=== PATIENT | female | born 2000 | race African-American/Black ===

== ENCOUNTER 2018-05-03 18:43 | Emergency (ER) | payer MEDICAID ==
[2018-05-03] MEDS: NS 1,000 ML IV ×2 (22:00)
[2018-05-03] MEDS: KETOROLAC 30 MG/ML VIAL (J1885) IV ×2 (22:00)
[2018-05-03 22:07] LABS: BASO % 0.3 % (0.0-1.0); EOS # 0.1 10^3/uL (0.0-0.50); EOS % 1.4 % (0.0-3.0); HEMATOCRIT 36.8 % (36.0-47.0); HEMOGLOBIN 12.4 g/dl (12.0-15.5); IMMATURE GRANULOCYTE % 0.2 % (0-3.0); LYMPH # 3.2 10^3/uL (1.5-6.5); LYMPH % 53.4 % (24.0-44.0); MEAN CORPUSCULAR HEMOGLOBIN 29.6 pg (27.0-33.0); MEAN CORPUSCULAR HGB CONC 33.7 g/dl (32.0-36.5); MEAN CORPUSCULAR VOLUME 87.8 fl (80.0-96.0); MONO # 0.7 10^3/uL (0.0-0.8); MONO % 11.5 % (0.0-5.0); NEUTROPHILS % 33.2 % (36.0-66.0); PLATELET COUNT, AUTOMATED 324 10^3/uL (150-450); RED BLOOD COUNT 4.19 10^6/uL (4.00-5.40); RED CELL DISTRIBUTION WIDTH 12.1 % (11.5-14.5); WHITE BLOOD COUNT 5.9 10^3/uL (4.0-10.0)
[2018-05-03 22:11] LABS: ANION GAP 7 MEQ/L (8-16); BLOOD UREA NITROGEN 9 MG/DL (7-18); CALCIUM LEVEL 9.2 MG/DL (8.5-10.1); CARBON DIOXIDE LEVEL 29 MEQ/L (21-32); CHLORIDE LEVEL 106 MEQ/L (98-107); CREATININE FOR GFR 0.64 MG/DL (0.55-1.30); GLUCOSE, FASTING 75 MG/DL (70-100); POTASSIUM SERUM 4.1 MEQ/L (3.5-5.1); SODIUM LEVEL 142 MEQ/L (136-145)
[2018-05-03] MEDS: ACETAMINOPHEN 325 MG TAB PO ×2 (23:16)
== END 2018-05-03 23:37 | disposition home or self-care (01) ==
LOC: M ED 18:43
DX: G43.109 Migraine with aura, not intractable, without status migrainosus (principal); H57.8 Other specified disorders of eye and adnexa
CPT/HCPCS: J1885

== ENCOUNTER → 2018-08-01 | Outpatient (CLI) | payer MEDICAID, OTHER ==
[~2018-08-01] MED LIST: ISOVUE-370 76% 100ML VIAL (Q9967) As Ordered
== END ==
LOC: M RADPRO 11:56
DX: N97.9 Female infertility, unspecified (principal)
CPT/HCPCS: 58340

== ENCOUNTER 2018-10-26 19:30 | Emergency (ER) | payer MEDICAID, SELFPAY ==
[~2018-10-26] VITALS: Ht 162.6 cm; Wt 68.2 kg
[~2018-10-26 19:30] MED LIST changes: +IBUP80TA PO; -ISOVUE-370 76% 100ML VIAL (Q9967) As Ordered; +ZOFR4TAB14 PO
[2018-10-26] MEDS ORDERED: KETOROLAC 60 MG/2 ML VIAL (J1885) IM ONE (20:45)
[2018-10-26] MEDS ORDERED: ACETAMINOPHEN TAB 650MG DOSE (2X325MG) PO ONE (20:45)
[2018-10-26] MEDS ORDERED: IBUP-1022 PO (21:41)
[2018-10-26 21:45] VITALS: BP 116/55
== END 2018-10-26 21:55 | disposition home or self-care (01) ==
LOC: M ED 19:30
DX: R51 Headache (principal)
CPT/HCPCS: 81025; 96372; 99284; J1885

== ENCOUNTER 2019-05-04 20:24 | Emergency (ER) | payer OTHER, SELFPAY ==
[~2019-05-04 20:24] MED LIST changes: +IBUP-1022 PO
[2019-05-04] MEDS ORDERED: ACETAMINOPHEN 325 MG TAB PO ONE (21:45)
--- NOTE | 2019-05-04 23:25 | REPVR ---
EXAM: US First Trimester, Transabdominal and US Duplex Artery and Vein, Ovaries, Complete EXAM DATE/TIME: 05/04/2019 10:16 PM CLINICAL HISTORY: 18 years old, female; complicated by abdominal or pelvic pain; Generalized abdominal pain; First trimester; Gestational age or lmp: 13w; ; Additional info: Abdominal pain; 13 weeks TECHNIQUE: Imaging protocol: Real-time transabdominal obstetrical ultrasound of the maternal pelvis and a first trimester , less than 14 weeks 0 days, with image documentation. Real-time duplex ultrasound scan of the arterial and venous flow of the ovaries with B-mode, color Doppler flow and spectral waveform analysis, complete duplex. COMPARISON: No relevant prior studies available. FINDINGS: GESTATION: Gestation: There is a single live intrauterine gestation. Heart rate: 152 beats per minute Presentation: Variable Placenta: The location of placenta is posterior without evidence for placenta previa or placental abruption and is grade 0. Amniotic fluid: Subjectively within normal limits. BIOMETRY: Estimated gestational age by US: 13 weeks 0 days Estimated gestational age by LMP: 26 weeks 1 day Kimm[place]-Rump length: 6.59 cm; 12 weeks 6 days (48th percentile for gestational age of 13 weeks 0 days) Estimated due date by US: 11/09/2019 Estimated due date by LMP: 08/09/2019 Estimated weight: 68 g +/- 10 g (2 oz +/- 0 oz); (39th percentile for gestational age of 13 weeks 0 days, <3rd percentile for gestational age of 26 weeks 1 day based on LMP) Biparietal diameter: 1.97 cm; 15 weeks 1 day (56th percentile for gestational age of 13 weeks 0 days) Head circumference: 7.1 cm; 12 weeks 6 days (48th percentile for gestational age of 13 weeks 0 days) Abdominal circumference: 6.02 cm; 12 weeks 6 days (46th percentile for gestational age of 13 weeks 0 days) Femur length: 1.09 cm; 13 weeks 2 days (59th percentile for gestational age of 13 weeks 0 days) MATERNAL: Uterus: Unremarkable. Cervix: The cervix measures 3.3 cm in length and is closed. Right adnexa: The right ovary is normal in appearance. No right ovarian cyst or right adnexal mass is noted. The right ovary measures 3.3 cm x 2.8 cm x 3.7 cm. The arterial and venous color Doppler flow and spectral waveforms within the right ovary are within normal limits, without evidence for right ovarian torsion. Left adnexa: The left ovary measures 5.1 cm x 2.8 cm x 1.9 cm and contains a 2.3 cm x 2 cm x 1.9 cm hypoechoic cyst, which likely represents a corpus luteal cyst. The arterial and venous color Doppler flow and spectral waveforms within the left ovary are within normal limits, without evidence for left ovarian torsion. Intraperitoneal: No intraperitoneal free fluid is visualized in the images obtained. IMPRESSION: 1. Single live intrauterine gestation with a gestational age by ultrasound of 13 weeks 0 days and estimated due date on 11/09/2019 and appropriate growth for gestational age. A second trimester obstetrical ultrasound is recommended at 18-20 weeks gestation or as clinically indicated 2. Estimated weight = 68 g +/- 10 g (2 oz +/- 0 oz), which is in the 39th percentile for the gestational age of 13 weeks 0 days. 3. 2.3 cm x 2 cm x 1.9 cm hypoechoic left ovarian cyst, which likely represents a corpus luteal cyst. 4. No ovarian torsion. Electronically signed by: Curt Marte On 05/04/2019 23:24:59 PM
[2019-05-04 23:31] VITALS: BP 133/64
[2019-05-04] MEDS ORDERED: KEFL500C17 PO (23:52)
--- NOTE | 2019-05-06 07:02 | ECGEPIP ---
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
== END 2019-05-05 00:01 | disposition home or self-care (01) ==
LOC: M ED 20:24
DX: O23.41 Unspecified infection of urinary tract in pregnancy, first trimester (principal); Z3A.13 13 weeks gestation of pregnancy; Z79.899 Other long term (current) drug therapy

== ENCOUNTER → 2019-05-15 | Outpatient (REF) | payer MEDICAID ==
[~2019-05-15] MED LIST changes: +KEFL500C17 PO
[2019-05-15 20:17] LABS: HEMATOCRIT 35.3 % (36.0-47.0); MEAN CORPUSCULAR HEMOGLOBIN 29.9 pg (27.0-33.0); PLATELET COUNT, AUTOMATED 290 10^3/uL (150-450); RED BLOOD COUNT 4.01 10^6/uL (4.00-5.40); WHITE BLOOD COUNT 6.9 10^3/uL (4.0-10.0)
[2019-05-16 10:19] LABS: HEPATITIS C VIRUS ABY INDEX 0.1 INDEX (<0.8); HIV 1&2 SCREEN CENTAUR NEGATIVE (NEGATIVE); RUBELLA IgG QUALITATIVE IMMUNE (IMMUNE)
[2019-05-21 00:06] LABS: HEMOGLOBIN A 95.7 % (96.4-98.8); HEMOGLOBIN A2 2.6 % (1.8-3.2); HEMOGLOBIN F (FETAL) 1.7 % (0.0-2.0); HGB SOLUBILITY Negative (Negative)
== END ==
LOC: M LAB REF 16:41
PROVIDERS: ATTEND Nurse Practitioner Women's Health
DX: Z34.82 Encounter for supervision of other normal pregnancy, second trimester (principal); Z3A.00 Weeks of gestation of pregnancy not specified

== ENCOUNTER → 2019-08-11 | Outpatient (CLI) | payer MEDICAID ==
[2019-08-11 16:02] LABS: HEMATOCRIT 34.2 % (36.0-47.0); HEMOGLOBIN 11.1 g/dl (12.0-15.5); MEAN CORPUSCULAR HEMOGLOBIN 29.2 pg (27.0-33.0); MEAN CORPUSCULAR HGB CONC 32.5 g/dl (32.0-36.5); PLATELET COUNT, AUTOMATED 259 10^3/uL (150-450); WHITE BLOOD COUNT 7.8 10^3/uL (4.0-10.0)
== END ==
LOC: M LAB 14:29
PROVIDERS: ATTEND Nurse Practitioner Women's Health
DX: Z34.82 Encounter for supervision of other normal pregnancy, second trimester (principal); Z3A.00 Weeks of gestation of pregnancy not specified

== ENCOUNTER 2019-09-06 16:37 | Outpatient (CLI) | payer MEDICAID ==
[~2019-09-06] VITALS: Ht 162.6 cm; Wt 76.4 kg
[2019-09-06 16:53] VITALS: BP 132/80
--- NOTE | 2019-09-06 17:22 | IPN ---
DATE: 09/06/2019 A 18-year-old G1 at 31 weeks gestation presents with lower abdominal cramping for 1 week. The cramping is worse when she is at work. She has no bleeding. She has no severe pains. She is a patient of Noelle Cruz but was told to come to [facility] because it was the closest hospital. She did not call her provider. Her mother told her to come to the hospital. OBJECTIVE: Weight 76 kg, height 5 feet 4 inches, blood pressure 130/78. She is in no apparent distress. Head and neck exam normal. Lungs clear. Heart regular. Abdomen nontender, gravid, soft. Sterile vaginal exam: Long, closed, posterior cervix. heart tone category 1. Contractions: None. Extremities: Nontender. ASSESSMENT: A 18-year-old G1 at 31 weeks gestation presents with lower abdominal cramping. No evidence of labor. PLAN: Try abdominal binder to help support her abdomen while at work. Tylenol and rest when possible. Stay well hydrated. Followup with Noelle Cruz as scheduled.
== END 2019-09-06 17:30 | disposition home or self-care (01) ==
LOC: M LDO 16:37
PROVIDERS: ATTEND Specialist
DX: O26.893 Other specified pregnancy related conditions, third trimester (principal); R10.30 Lower abdominal pain, unspecified; Z3A.31 31 weeks gestation of pregnancy

== ENCOUNTER → 2019-10-07 | Outpatient (REF) | payer OTHER | LOC: M LAB REF 17:10 | PROVIDERS: ATTEND Obstetrics & Gynecology | DX: Z36.85 Encounter for antenatal screening for Streptococcus B (principal) ==

== ENCOUNTER 2019-10-24 00:52 | Outpatient (CLI) | payer BC, OTHER ==
[~2019-10-24] VITALS: Ht 162.6 cm; Wt 84.0 kg
[2019-10-24] VITALS (25 sets, daily range): BP systolic 102–159; BP diastolic 58–87
[2019-10-24] MEDS ORDERED: PRENTAB9 PO (02:04)
[2019-10-24] MEDS ORDERED: LR 1,000 ML IV SCH (02:30)
[2019-10-24] MEDS ORDERED: PENICILLIN G POTASSIUM IV 5 MU in D5W MINI-BAG PLUS 100 ML IV ONE (02:30)
[2019-10-24 03:44] LABS: HEMATOCRIT 36.3 % (36.0-47.0); HEMOGLOBIN 12.3 g/dl (12.0-15.5); MEAN CORPUSCULAR HEMOGLOBIN 29.9 pg (27.0-33.0); MEAN CORPUSCULAR HGB CONC 33.9 g/dl (32.0-36.5); MEAN CORPUSCULAR VOLUME 88.3 fl (80.0-96.0); PLATELET COUNT, AUTOMATED 260 10^3/uL (150-450); RED BLOOD COUNT 4.11 10^6/uL (4.00-5.40); WHITE BLOOD COUNT 8.5 10^3/uL (4.0-10.0)
[2019-10-24] MEDS: PENICILLIN G POTASSIUM IV 2.5 MU in IV 1 EA IV SCH ×3 (07:24→16:57)
[2019-10-24] MEDS ORDERED: LACTATED RINGER'S 1000 ML IV STA (07:32)
--- NOTE | 2019-10-24 08:24 | HPEPDOC ---
Obstetrical History & Physical General Date of Admission Oct 24, 2019 at 02:50 Primary Care Physician: Marcia Cortez CNM History of Present Illness Chief Complaint: LOF, term, Group B Positive, Rupture of membranes Information Provided By: Patient Age: 18 : 2 Term: 0 Pre-term: 0 Abortions: 1 Livin Care Care: Good Care Dating Final EDC: Nov 09, 2019 Final EDC by: 1st trimester (US) LMP: Jul 27, 2018 (unsure of date) EGA at Admission: 37.5 Antepartum Course Diagnos(e)s SIUP at 37.5wk gestation, SROM Height (inches): 64 Pre- weight (lbs.): 145 Admission Weight (lbs.): 185 Change in Weight (lbs.): 40 Past Medical History Past Obstetrical History : Past Obstetrical History: Primgravida MEDICAL DOSIMETRIST History: Theraputic Past Medical History Surgical History: Denies/None Family History Significant Family History: Cancer, Other (Stroke, Alzheimer's disease) Social History Marital Status: Single Family situation: Spouse/partner home Psychosocial History: No pertinent psych hx * Smoker: non-smoker Alcohol: Denies Drugs: denies Abuse Violence Screening Have you been hit/kicked/slapp: No Have you been sexually assault: No Allergies Coded Allergies: No Known Allergies (Unverified , 05/03/18) Medications Scheduled Cephalexin (Keflex) 500 Mg Capsule, 500 MG PO Q12H No.137/Iron/Folic Acd ( Vitamin Tablet) 1 Each Tablet, 1 TAB PO DAILY Scheduled PRN Ibuprofen (Ibuprofen) 800 Mg Tab, 800 MG PO Q8HP PRN for PAIN Ibuprofen (Ibuprofen) 600 Mg Tab, 600 MG PO Q6H PRN for PAIN Ondansetron (Zofran Odt) 4 Mg Tab, 4 MG PO Q4H PRN for NAUSEA Physical Examination Physical Examination GENERAL: Alert and oriented times three. BREAST: . ABDOMEN: Gravid and non-tender to touch. FETUS: Is vertex (VTX) by sterile vaginal examination (SVE), fetus is vertex (VT X) by Duncan. HEART RATE: Regular rate and rhythm. LUNGS: Clear to auscultation (CTA). EXTREMITIES: No edema. No clonus. Deep tendon reflexes (DTRs) + 2. Vital Signs/I&O Vital Signs Date Time Temp Pulse Resp B/P (MAP) Pulse Ox O2 Delivery O2 Flow Rate FiO2 10/24/19 07:27 74 131/74 (93) 10/24/19 03:57 98.0 10/24/19 01:13 18 Laboratory Data 24H LABS Laboratory Tests 2 10/24/19 02:52: Serology Scanned Report Hepatitis B Testing 10/24/19 03:30: Nucleated Red Blood Cells % (auto) 0.0 CBC/BMP Laboratory Tests 10/24/19 03:30 Pertinent Laboratoy Data Blood Type: O+ RBC Antibody Screen: Negative HIV: Negative Hepatitis B: Negative Hepatitis C: Negative Rapid Plasma Reagin: Nonreactive Rubella: Immune Chlamydia/Gonorrhea: Negative Group B Streptococcus: Positive Quad Screen Test: Negative Glucose Tolerance Test: 77 Anatomy Ultrasound Ultrasound Date: Jun 24, 2019 Placenta Location: Posterior Normal Anatomy: Yes Placenta Previa: No Other Ultrasounds 05/04/2019-SIUP at 13.0wk gestation JUVENCIO 11/09/2019. Posterior placenta. Hypoechoic cyst which likely represents corpus luteal cyst. 06/24/2019-SIUP at 20.2wk. [id number], Posterior placenta. No previa. AFV normal. Vaginal Examination Dilation: 1cm Effacement: 80% Station: -2 Cervical Consistency: Soft Cervical Position: Middle Presentation: Cephalic presentation Position: Vertex (occiput) Assessment Heart Rate (FHR): 135 Variability: Moderate Accelerations: Positive Decelerations: None Tocometer Contractions: Yes Frequency: irregular, every 3-7 min. Duration: greater than 60 seconds Strength: palpated as mild Assessment/Plan Assessment Caren Dunn is a 18-year-old (G)2 para (P)0-0-1-0 at 37+5 weeks by 13-week ultrasound. JUVENCIO 11/09/2019. Care was established at [facility] in the first trimester. has been complicated by GBS positive state. Presents to Labor and Delivery (L&D) for evaluation of SROM at 2200 last night. She reports positive movement, denies vaginal bleeding. Reports clear fluid leaking and irregular mildly painful contractions since 2200. Plan Admit to L&D. Diet: Clears. Group B Streptococcus (GBS) positive. Labs and intravenous (IV) per unit protocol. Counseled on Pitocin and induction of labor (IOL). Lactated Ringers (LR): Bolus 500 mL, then at 125 mL/hr. Anesthesia consult per patient request. Anticipate cervical ripening and dilation. Anticipate normal spontaneous delivery (). C-S as appropriate. Marcia Cortez CNM Oct 24, 2019 08:24
[2019-10-24] MEDS: LR 1,000 ML IV SCH ×2 (10:30→17:01)
[2019-10-24] MEDS ORDERED: OXYTOCIN DRIP 30 UNITS in IV 1 EA IV SCH (11:00)
--- NOTE | 2019-10-24 14:44 | IPNPDOC ---
Text Note Date of Service The patient was seen on 10/24/19. NOTE Progress Patient has had absolutely no leakage of fluid since her arrival. ROM only documented by exterior nitrazine via nursing. Cat I tracing. Vertex presentation confirmed by sono Spec exam - neg pool, faint + nitrazine, neg fern. Pitocin off. BPP with DEMI and reassess for LOF after sono VS,Fishbone, I+O VS, Fishbone, I+O Laboratory Tests 10/24/19 03:30 Vital Signs Date Time Temp Pulse Resp B/P (MAP) Pulse Ox O2 Delivery O2 Flow Rate FiO2 10/24/19 11:30 71 18 134/64 (87) 10/24/19 10:29 99.0 Marcia Cortez CNM Oct 24, 2019 14:44
--- NOTE | 2019-10-24 16:27 | REP ---
OB ULTRASOUND AND BIOPHYSICAL PROFILE: Real-time sonographic evaluation of the gravid uterus performed. There is a single living intrauterine gestation. The estimated gestational age is 37 weeks 5 days, EDC 11/09/2019. heart rate 136 beats per minute. Amniotic fluid within normal limits. DEMI is 14.7, within normal range of 7.4 to 24.1. Biophysical profile score 8/8. S/D ratio 3.58 is above normal range of 1.6 to 2.6. RI 0.72, within normal range of 0.59 to 0.75. position is vertex. Placenta is posterior and grade 2 with no previa or abruption. Cervix is not well seen due to low head position. Electronically Signed by Simone Hung MD 10/24/2019 04:32 P
--- NOTE | 2019-10-24 17:30 | IPNPDOC ---
Text Note Date of Service The patient was seen on 10/24/19. NOTE Progress BPP 8/8. DEMI 14.7 No evidence of LOF despite 2 speculum exams, both demonstrate faint nitrazine, neg pool, neg valsalva, neg fern. Scant bloody discharge at cervical os. Cat I tracing, irregular mild UC. Reviewed pt status with Dr Che. Agrees not ruptured. Discharged home. Instructed to avoid tub baths, intercourse, anything vaginally. Wear a pad daily, call if saturated. Call for temperature, decreased movement, regular UC Keep appt next week with Dr Acevedo. VS,Fishbone, I+O VS, Fishbone, I+O Laboratory Tests 10/24/19 03:30 Vital Signs Date Time Temp Pulse Resp B/P (MAP) Pulse Ox O2 Delivery O2 Flow Rate FiO2 10/24/19 16:50 87 18 125/75 (92) 10/24/19 15:42 98.9 Marcia Cortez CNM Oct 24, 2019 17:30
== END 2019-10-24 19:37 | disposition home or self-care (01) ==
LOC: M LDO 00:52 → UNDOADMIN 02:50 → M LDI 02:50 → UNDOADMIN 07:35 → M LDI 07:35 → M LDO 19:37 → UNDODISIN 19:37
PROVIDERS: ATTEND Obstetrics & Gynecology
DX: O26.893 Other specified pregnancy related conditions, third trimester (principal); N89.8 Other specified noninflammatory disorders of vagina; O99.820 Streptococcus B carrier state complicating pregnancy; O62.0 Primary inadequate contractions; Z3A.37 37 weeks gestation of pregnancy
CPT/HCPCS: 59025; 76815; 76819; 76820; 85027; 86592; 86780; 86850; 86900; 86901; 96365; 96366; 96368; G0463; J2590

== ENCOUNTER 2019-10-31 01:52 | Inpatient (IN) | payer BC, OTHER ==
[2019-10-31] VITALS (11 sets, daily range): BP systolic 121–157; BP diastolic 62–89
[~2019-10-31] VITALS: Ht 162.6 cm; Wt 80.9 kg
[~2019-10-31 01:52] MED LIST changes: +PRENTAB9 PO
[2019-10-31] MEDS ORDERED: OXYTOCIN 30 UNITS IN 0.9% NaCl 500ML IV BAG (J2590) As Ordered ONE (04:42)
[2019-10-31] MEDS ORDERED: LR 1,000 ML IV SCH (05:21)
[2019-10-31] MEDS ORDERED: RHOGAM 300 MCG (1500 IU) INJ (J2790) IM SCH (05:30)
[2019-10-31] MEDS ORDERED: ACETAMINOPHEN TAB 650MG DOSE (2X325MG) PO PRN (05:30)
[2019-10-31] MEDS ORDERED: DOCUSATE SODIUM 100 MG CAP PO PRN (05:30)
[2019-10-31] MEDS ORDERED: DIBUCAINE 1% OINTMENT 30GM TOP PRN (05:30)
[2019-10-31] MEDS ORDERED: LIDOCAINE 1% MDV 20ML VIAL INFIL ONE (05:30)
[2019-10-31] MEDS ORDERED: METHYLERGONOVINE MALEATE 0.2 MG TAB PO PRN (05:30)
[2019-10-31] MEDS ORDERED: MEASLES,MUMPS,RUBELLA VACCINE INJ (MMR-II) (90707) SC SCH (05:30)
[2019-10-31 05:54] LABS: HEMATOCRIT 36.4 % (36.0-47.0); HEMOGLOBIN 12.5 g/dl (12.0-15.5); MEAN CORPUSCULAR HGB CONC 34.3 g/dl (32.0-36.5); MEAN CORPUSCULAR VOLUME 87.5 fl (80.0-96.0); PLATELET COUNT, AUTOMATED 239 10^3/uL (150-450); RED BLOOD COUNT 4.16 10^6/uL (4.00-5.40); WHITE BLOOD COUNT 11.2 10^3/uL (4.0-10.0)
[2019-10-31] MEDS ORDERED: OXYTOCIN DRIP 30 UNITS in IV 1 EA IV ONE (07:30)
[2019-10-31] MEDS: ACETAMINOPHEN 500 MG TAB PO PRN ×2 (08:10→17:36)
[2019-10-31] MEDS: PRENATAL VITAMINS CHEWABLE TABLET PO SCH (09:00)
[2019-10-31] MEDS: IBUPROFEN 600 MG TAB PO PRN (12:04)
--- NOTE | 2019-10-31 17:31 | HPE ---
DATE OF ADMISSION: 10/31/2019 Caren is a 18-year-old female, 1, para 0 with an estimated date of confinement (EDC) of 11/09/2019, estimated gestational age (EGA) 38-4/7 weeks gestation who presented to labor and delivery with complaints of contractions. She was being monitored in labor and delivery, became fully dilated precipitously, and at this point, the decision was made to admit the patient. Her records reviewed. LABORATORY DATA: Blood type is O+, rubella immune, hepatitis negative, HIV negative, GC and chlamydia negative, one-hour sugar testing was within normal limit. Her GBS is positive. PAST MEDICAL HISTORY: Denies. PAST SURGICAL HISTORY: Denies. SOCIAL HISTORY: The patient denies any alcohol, drug or cigarette smoking. REVIEW OF SYSTEMS: Unremarkable. MEDICATIONS: vitamin. ALLERGIES: No known drug allergy. PHYSICAL EXAMINATION: HEENT: Grossly within normal limits. ABDOMEN: Soft, nontender, nondistended, gravid. EXTREMITIES: No clubbing, cyanosis or edema. Tracing reviewed. Category 1 tracing with occasional deceleration. Contractions every 3-4 minutes. ASSESSMENT: Intrauterine at 38-4/7 weeks gestation, progressing in labor rapidly. PLAN: Admit to labor and delivery. Laboratories reviewed.
[2019-11-01] MEDS: IBUPROFEN 600 MG TAB PO PRN (00:14)
[2019-11-01 05:54] VITALS: BP 116/55
[2019-11-01] MEDS: IBUPROFEN 800 MG TAB PO PRN (07:18)
--- NOTE | 2019-11-01 07:45 | IPNPDOC ---
Progress Note Date of Service: Nov 01, 2019 Day#: 1 Progress Note SUBJECT: Caren is a 18-year-old status post uncomplicated spontaneous vaginal delivery doing well day # 1. She has been ambulating, voiding spontaneously without issue and tolerating regular diet. Breast feeding well. Reports lochia is like a normal period. Reports pain is well-controlled. OBJECTIVE: VITAL SIGNS: Within normal limits, afebrile. Alert and oriented times three. Breath sounds clear to auscultation. Heart rate: Regular rate and rhythm, no murmurs, rubs or gallops. Abdomen: Fundus firm at U-2. Soft, appropriately tender to palpation. Minimal lochia. ASSESSMENT: day #1. PLAN: 1. Discharge to home tomorrow. 2. Tylenol and Motrin for pain. 3. Encourage breast feeding and ambulation. 4. Routine care. VS, I&O, 24H, Fishbone Vital Signs/I&O Vital Signs Date Time Temp Pulse Resp B/P (MAP) Pulse Ox O2 Delivery O2 Flow Rate FiO2 11/01/19 05:54 98.1 96 17 116/55 (75) I&O- Last 24 Hours up to 6 AM 11/01/19 06:00 Output Total 900 ml Balance -900 ml Marcia Cortez CNM Nov 01, 2019 07:44
[2019-11-01] MEDS: PRENATAL VITAMINS CHEWABLE TABLET PO SCH (08:41)
--- NOTE | 2019-11-01 10:29 | DN ---
DATE OF DELIVERY: 10/31/2019 Caren is a 18-year-old female, 2, para 0-0-1-0 who was admitted at 38 and 4 weeks gestation who progressed to labor very rapidly, had a precipitous delivery in bed with Dr. Che in room, on my arrival, placenta delivered spontaneously intact. Three-vessel cord. Perineum, vagina and cervix inspected with a first-degree left vaginal wall laceration which was repaired using 2-0 chromic. Estimated blood loss 300 mL. She delivered a live female infant with an score of 9 and 9, weight 6 pounds 2 ounces. Both mother and baby in stable condition.
[2019-11-01 17:43] VITALS: BP 129/72
[2019-11-01] MEDS: ACETAMINOPHEN 500 MG TAB PO PRN (17:43)
[2019-11-02 06:00] VITALS: BP 108/55
[2019-11-02] MEDS: PRENATAL VITAMINS CHEWABLE TABLET PO SCH (07:49)
[2019-11-02] MEDS: IBUPROFEN 800 MG TAB PO PRN (07:49)
[2019-11-02] MEDS ORDERED: IBUP80TA PO (10:06)
== END 2019-11-02 14:15 | disposition home or self-care (01) | DRG 560 ==
LOC: M LDO 01:52 → M LDI 04:38 → M OBS 08:21
PROVIDERS: ADMIT Obstetrics & Gynecology; ATTEND Obstetrics & Gynecology
PROC: 10E0XZZ Delivery of Products of Conception, External Approach (ICD-10-PCS; principal; 2019-10-31)
PROC: 0HQ9XZZ Repair Perineum Skin, External Approach (ICD-10-PCS; 2019-10-31)
DX: O62.3 Precipitate labor (principal); O70.0 First degree perineal laceration during delivery; Z37.0 Single live birth; Z3A.38 38 weeks gestation of pregnancy

== ENCOUNTER 2019-11-04 06:17 | Emergency (ER) | payer BC, OTHER ==
[~2019-11-04] VITALS: Ht 162.6 cm; Wt 78.6 kg
[2019-11-04] MEDS ORDERED: IBUPROFEN 800 MG TAB As Ordered ONE (06:47)
[2019-11-04] MEDS ORDERED: IBUPROFEN 800 MG TAB PO ONE (07:00)
[2019-11-04 08:42] VITALS: BP 128/78
== END 2019-11-04 09:24 | disposition home or self-care (01) ==
LOC: M ED 06:17
DX: O92.79 Other disorders of lactation (principal); Z79.899 Other long term (current) drug therapy

== ENCOUNTER → 2020-09-09 | Outpatient (CLI) | payer SELFPAY | LOC: M LABSMTC 12:26 | PROVIDERS: ATTEND Pediatrics | DX: Z20.822 Contact with and (suspected) exposure to COVID-19 (principal) ==